=== PATIENT | female | born 1945 | race Caucasian/White ===

== ENCOUNTER 2024-02-05 08:27 | Day surgery (SDC) | payer SELFPAY ==
[2024-02-05] VITALS (7 sets, daily range): BP systolic 93–126; BP diastolic 63–70; PULSE 61–72; RESP 16; TEMP 36.3–36.8; O2SAT 97–100; BMI 18.7
--- NOTE | 2024-02-05 08:46 | HP.PCM_ITS ---
HPI - General HPI Narrative WILBER LONG, is a 78 F who presents for an EGD and colonoscopy. Patient was unaware that omeprazole was called in and has not been taking. Patient states she thinks her abdominal bloating is better. office visit 12/18/23 HPI HPI: 78-year-old female presents for screening colonoscopy, encouraged by her PCP as she has been having issues with occasional bloating about twice a week per patient patient states that she can get abdominal discomfort with this in the upper abdomen states it can be a 6/10 and states it can continue until she goes to bed states she may lay down and have some burping denies any actual reflux of food or acid in her mouth or esophagus. Patient denies reflux. Patient is never had an EGD or colonoscopy. Patient states she did have an issue 3 years ago for about 7 months where she had nausea and vomiting least once a week she states she did a liver cleanse which involved grape juice and Epsom salt and mineral oil and after that she no longer had the nausea and vomiting. Patient states she has bowel movements daily denies any family history of colon cancer. Patient denies any abdominal surgeries. [facility] Medical History (Updated 02/04/24 @ 10:56 by Cnydi Smith) Abdominal pain Anemia Ciliary dyskinesia Constipation Genetic defect Hemorrhoids History of edema History of episiotomy History of pain when walking Injury of head and neck Leg cramps Nausea and vomiting Non-smoker Numbness and tingling Post-menopausal Shortness of breath on exertion Thyroid disease Wears glasses Wears partial dentures Weight loss Home Medications cholecalciferol (vitamin D3) 50 mcg (2,000 unit) capsule 50 mcg PO DAILY 12/18/23 [History Last Taken Unknown] multivitamin 1 tab PO DAILY 12/18/23 [History Last Taken 02/04/24] Allergy/AdvReac Type Severity Reaction Status Date / Time Egg Derived AdvReac Mild Other Verified 02/05/24 08:50 neeta AdvReac Mild Other Verified 02/05/24 08:50 pineapple AdvReac Mild Other Verified 02/05/24 08:50 Family History (Updated 12/18/23 @ 13:27 by Aury Bolaños) Mother Breast cancer Brother Heart disease Myocardial infarction Social History (Updated 12/18/23 @ 13:27 by Aury Bolaños) Smoking Status: Never smoker alcohol intake: never Past Medical/Surgical History Planned Operation Planned Operative Procedure/s: EGD/CSCOPE Previous Hospitalizations/Surgeries HX Hospitalizations: No Any Problems With Anesthesia: Yes (N,V) You/Your Family Experience Fever (Hyperthermia) With Anes: No Cholinesterase deficiency: No Cardiovascular Hx Hypertension: No Respiratory Hx Sleep Apnea: No Hx Respiratory Tract Infection/Cold (presently): No Do You Snore Loudly (louder than talking or can be heard): No Do You Often Feel Tired/ Fatigued/ Sleepy Dring Daytime?: No Has Anyone Observed You Stop Breathing During Sleep?: No Result (for STOP score): Negative Smoking Status: Never smoker Neurological Does patient have nerve stimulator: No Reproduction : No Allergies Egg Derived Adverse Reaction (Mild, Verified 02/05/24 08:50) Other Pt states she doesn't feel well with egg whites neeta Adverse Reaction (Mild, Verified 02/05/24 08:50) Other Pt states she doesn't feel well pineapple Adverse Reaction (Mild, Verified 02/05/24 08:50) Other Pt states she doesn't feel well Discharge Is Pt Admitted From a Intermediate, or a Detention: No After D/C, Where Do you Plan to Go: Return Home Physical Exam Const alert, oriented x3 and no apparent distress HEENT normocephalic and head/scalp atraumatic Resp normal respiratory effort Cardio regular rate GI soft to palpation and non-tender; Negative for non-distended Palpation: Negative for guarding Extremity no clubbing, cyanosis or edema Skin no rashes or lesions noted Neuro CN's II-XII intact bilaterally Psych mental status grossly normal Assessment & Plan Assessment/Plan (1) Abdominal bloating: (2) Screening for colon cancer: Surgery Risks - Colonoscopy I discussed with the patient the risks of the procedure: Yes Risks Include but are not Limited To: Plan for an EGD and colonoscopy Risks include but are not limited to: Bleeding, perforation requiring further surgery, inability to complete colonoscopy requiring barium enema.
[2024-02-05] MEDS: Lactated Ringers 1,000 ML 15 ML IV (09:16)
--- NOTE | 2024-02-05 09:45 | EGD_PTH ---
PATIENT: WILBER LONG LOC: EN U#:[id number] AGE/SX: 78/F ROOM: RE02/05/[address]: Dr. Lilo Mitchell MD : 1945 BED: DIS: 02/05/2024 SPEC #: [id number] RECD: 02/05/24 11:24 STATUS: CATHERINE CHERYL #: [id number] NEVAEH: 02/05/24 09:[address]: Lilo Mitchell DEPT: SURGICAL PATHOLOGY RECD BY: Mercy Carter ENTERED: 02/05/24 12:46 SP TYPE: EGD BIOPSY OTHR DR: Jared Moore PA-C Tissues: A - Gastric mucous membrane B - Gastric mucous membrane C - Esophagus, NOS D - Esophagus, NOS E - Esophagus, NOS F - Descending colon Procedures: Special Stain Group II Special Stain Group I Surgery Specimen Level IV GMS Stain (control) Alcian Blue/PAS (control) HEADER OPERATION: Colonoscopy, EGD biopsy PRE-OP DIAGNOSIS: Abdominal boating, Screening for colon cancer TISSUE SUBMITTED: A- Antrum biopsy, B- Gastric body biopsy, C- Gastroesophageal junction biopsy, D- Mid esophagus erosion biopsy @ 15 and 20cm, E- Mid esophagus biopsy rule out anyi, F- Descending colon biopsy MICROSCOPIC DIAGNOSIS A. Antrum, biopsy: Moderate chronic active gastritis. See comment. B. Gastric body, biopsy: Moderate chronic active gastritis. See comment. C. Gastroesophageal junction, biopsy: Fragments of gastric mucosa with mild chronic inflammation. Intestinal metaplasia (goblet cell metaplasia) not identified. See comment. D. Mid esophagus erosion at 15.0 and 20.0cm, biopsy: A fragment of squamous epithelium with chronic inflammation. A minute fragment of gastric epithelium, negative for intestinal metaplasia (goblet cell metaplasia. See comment. E. Mid esophagus, biopsy: A fragment of squamous epithelium with chronic inflammation. See comment. F. Descending colon, biopsy: Hyperplastic polyp. 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 YUNIER/ 02/06/24 COMMENT A&B. The results of immunohistochemistry for Helicobacter pylori will be reported separately ([id number]). C&D. Alcian blue/PAS stain with matched control is used in the evaluation of the specimen. E. Special stain for fungi is negative for organisms; matched control is appropriate. MICROSCOPIC DESCRIPTION Slides are reviewed. GROSS DESCRIPTION A- Received in fixative is one container labeled with the patient's name and designated Antrum biopsy. The specimen consists of one irregular fragment of light martinez soft tissue that measures 0.4 x 0.3 x 0.1 cm. The specimen is totally submitted in one cassette. B. Received in fixative is one container labeled with the patient's name and designated Gastric body biopsy. The specimen consists of one irregular fragment of light martinez soft tissue that measures 0.3 x 0.3 x 0.1 cm. The specimen is totally submitted in one cassette. C. Received in fixative is one container labeled with the patient's name and designated GE junction biopsy. The specimen consists of one irregular fragment of light martinez soft tissue that measures 0.2 x 0.2 x 0.1 cm. The specimen is totally submitted in one cassette. D. Received in fixative is one container labeled with the patient's name and designated Mid esophagus erosion biopsy. The specimen consists of one irregular fragment of light martinez soft tissue that measures 0.2 x 0.2 x 0.1 cm. The specimen is totally submitted in one cassette. E. Received in fixative is one container labeled with the patient's name and designated Mid esophagus biopsy rule out anyi. The specimen consists of one irregular fragment of light martinez soft tissue that measures 0.3 x 0.2 x 0.1 cm. The specimen is totally submitted in one cassette. F. Received in fixative is one container labeled with the patient's name and designated Descending colon biopsy. The specimen consists of multiple irregular fragments of light martinez soft tissue that in aggregate measure 1.0 x 0.3 x 0.1 cm. The specimen is totally submitted in one cassette. YUNIER/ 02/05/24 TC:2 CPT:09802e4, 62197x0, 07510
--- NOTE | 2024-02-05 09:45 | IMM_PTH ---
PATIENT: WILBER LONG LOC: EN U#:[id number] AGE/SX: 78/F ROOM: RE02/05/[address]: Dr. Lilo Mitchell MD : 1945 BED: DIS: 02/05/2024 SPEC #: [id number] RECD: 02/05/24 13:19 STATUS: CATHERINE REMark #: [id number] NEVAEH: 02/05/24 09:[address]: Lilo Mitchell DEPT: IMMUNOHISTOCHEMISTRY RECD BY: Oren Jacobsen ENTERED: 02/05/24 13:20 SP TYPE: IMMUNO OTHR DR: Jared Moore PA-C Tissues: A - Stomach, NOS B - Stomach, NOS Procedures: H Pylori (initial) PHYSICIAN & INSTITUTION [place] [id number] SPECIMEN INFORMATION: Tissue Source: A- Antrum, B- Gastric body Clinical Info: Abdominal bloating, Screening for colon cancer Specimen Number: [id number] A&B CPT code: 84691 METHODOLOGY: Deparaffinized sections of prefer/formalin-fixed tissue or PAP/DQ stained slides are incubated with monoclonal/polyclonal antibodies/oligonucleotide probes. Localization is made via biotin free immunoperoxidase method. Appropriate controls are performed and reacted as expected. Results on target cell population are indicated in the following table: RESULTS: ANTIBODY / CLONE RESULT Block A H Pylori (polyclonal) negative Block B H Pylori (polyclonal) negative These tests were developed and their performance characteristics determined by [facility]. They may not have been cleared or approved by the U.S. Food and Drug Administration. The FDA has determined that such clearance or approval is not necessary. The above immunohistochemical/dualISH markers are ordered and reviewed by the Pathologist. INTERPRETATION: A. Antrum, biopsy: Negative for Helicobacter pylori organisms. B. Gastric body, biopsy: Negative for Helicobacter pylori organisms. YUNIER/ 02/06/24
--- NOTE | 2024-02-05 10:19 | OP.COLON_ITS ---
Patient Name: Lissette Gibbs Procedure Date: 02/05/2024 9:43 AM Date of : 1945 Age: 78 Procedure: Colonoscopy Indications: Screening for colorectal malignant neoplasm Providers: Lilo Mitchell MD Medicines: Monitored Anesthesia Care Patient Profile: This is a 78 year old female. Last Colonoscopy: none. The patient's first colonoscopy is today. Complications: No immediate complications. Procedure: Pre-Anesthesia Assessment: - Prior to the procedure, a History and Physical was performed, and patient medications and allergies were reviewed. The patient's tolerance of previous anesthesia was also reviewed. The risks and benefits of the procedure and the sedation options and risks were discussed with the patient. All questions were answered, and informed consent was obtained. Prior Anticoagulants: The patient has taken no anticoagulant or antiplatelet agents. ASA Grade Assessment: Per anesthesia. After reviewing the risks and benefits, the patient was deemed in satisfactory condition to undergo the procedure. After I obtained informed consent, the scope was passed under direct vision. Throughout the procedure, the patient's blood pressure, pulse, and oxygen saturations were monitored continuously. The pediatric colonoscope was introduced through the anus and advanced to the cecum, identified by the appendiceal orifice, ileocecal valve and palpation. The colonoscopy was performed without difficulty. The patient tolerated the procedure well. The quality of the bowel preparation was good. Scope In: 9:44:55 AM Scope Withdrawal Time 0 hours 13 minutes 12 seconds Scope Out: 10:07:49 AM Total Procedure Duration Time 0 hours 22 minutes 54 seconds Findings: Hemorrhoids were found on perianal exam. Non-bleeding internal hemorrhoids were found [Method Found]. The hemorrhoids were Grade I (internal hemorrhoids that do not prolapse). An area of melanosis was found in the entire colon. Two sessile polyps were found in the descending colon. The polyps were less than 5 mm in size. These polyps were removed with a cold biopsy forceps. Resection and retrieval were complete. The exam was otherwise without abnormality. Impression: - Hemorrhoids found on perianal exam. - Non-bleeding internal hemorrhoids. - Melanosis in the colon. - Two less than 5 mm polyps in the descending colon, removed with a cold biopsy forceps. Resected and retrieved. - The examination was otherwise normal. Recommendation: - Discharge patient to home. - Resume previous diet. - Continue present medications. - Await pathology results. - Repeat colonoscopy in 5 years for surveillance based on pathology results. Procedure Code(s): --- Professional --- 45806, PT, Colonoscopy, flexible; with biopsy, single or multiple Diagnosis Code(s): --- Professional --- Z12.11, Encounter for screening for malignant neoplasm of colon K64.0, First degree hemorrhoids K63.89, Other specified diseases of intestine D12.4, Benign neoplasm of descending colon CPT copyright 2021 [employer]. All rights reserved. The codes documented in this report are preliminary and upon sort manager review may be revised to meet current compliance requirements. MD Lilo Cox MD 02/05/2024 10:18:24 AM This report has been signed electronically. Number of Addenda: 0 Note Initiated On: 02/05/2024 9:43 AM
--- NOTE | 2024-02-05 10:25 | OP.EGD_ITS ---
Patient Name: Lissette Gibbs Procedure Date: 02/05/2024 9:23 AM Date of : 1945 Age: 78 Procedure: Upper GI endoscopy Indications: Abdominal bloating Providers: Lilo Mitchell MD Medicines: Monitored Anesthesia Care Patient Profile: This is a 78 year old female. Complications: No immediate complications. Procedure: Pre-Anesthesia Assessment: - Prior to the procedure, a History and Physical was performed, and patient medications and allergies were reviewed. The patient's tolerance of previous anesthesia was also reviewed. The risks and benefits of the procedure and the sedation options and risks were discussed with the patient. All questions were answered, and informed consent was obtained. Prior Anticoagulants: The patient has taken no anticoagulant or antiplatelet agents. ASA Grade Assessment: Per anesthesia. After reviewing the risks and benefits, the patient was deemed in satisfactory condition to undergo the procedure. After obtaining informed consent, the endoscope was passed under direct vision. Throughout the procedure, the patient's blood pressure, pulse, and oxygen saturations were monitored continuously. The pediatric colonoscope was introduced through the mouth, and advanced to the second part of duodenum. The upper GI endoscopy was accomplished without difficulty. The patient tolerated the procedure well. Scope In: 9:33:20 AM Scope Out: 9:43:35 AM Total Procedure Duration Time 0 hours 10 minutes 15 seconds Findings: 2 at 15cm & 20 cm 5 mm bleeding erosions were found in the proximal esophagus. Biopsies were taken with a cold forceps for histology. The examined duodenum was normal. , white plaques were found in the middle third of the esophagus. Biopsies were taken with a cold forceps for histology. Diffuse moderate inflammation characterized by erythema was found in the entire examined stomach. Biopsies were taken with a cold forceps for histology. Biopsies were taken with a cold forceps for Helicobacter pylori cultures. The Z-line was irregular and was found 40 cm from the incisors. Biopsies were taken with a cold forceps for histology. Impression: - 2 at 15cm & 20 cm bleeding erosions in the proximal esophagus. Biopsied. - Normal examined duodenum. - Esophageal plaques were found, suspicious for candidiasis. Biopsied. - Gastritis. Biopsied. - Z-line irregular, 40 cm from the incisors. Biopsied. Recommendation: - Await pathology results. - Discharge patient to home (ambulatory). - Resume previous diet. - Use Prilosec (omeprazole) 40 mg PO daily [duration]. - Use sucralfate tablets 1 gram PO QID for 1 month. - Continue present medications. Procedure Code(s): --- Professional --- 01490, Esophagogastroduodenoscopy, flexible, transoral; with biopsy, single or multiple Diagnosis Code(s): --- Professional --- K22.11, Ulcer of esophagus with bleeding K22.9, Disease of esophagus, unspecified K29.70, Gastritis, unspecified, without bleeding R14.0, Abdominal distension (gaseous) CPT copyright 2021 [employer]. All rights reserved. The codes documented in this report are preliminary and upon senior health educator review may be revised to meet current compliance requirements. MD Lilo Cox MD 02/05/2024 10:24:55 AM This report has been signed electronically. Number of Addenda: 0 Note Initiated On: 02/05/2024 9:23 AM
[2024-02-05] MEDS: Pantoprazole Sodium 40 MG in 0.9% Normal Saline (100mL MB+) 100 ML 330 MG IV (10:30)
== END 2024-02-05 11:37 | disposition home or self-care (01) ==
LOC: EN 08:35 → AC 08:36
PROVIDERS: PCP Physician Assistant; Referring Provider Physician Assistant; Visit Provider Surgery
PROC: 0DJD8ZZ Inspection of Lower Intestinal Tract, Via Natural or Artificial Opening Endoscopic (ICD-10-PCS; CPT 45378; principal; 2024-02-05 09:40)
DX: Z12.11 Encounter for screening for malignant neoplasm of colon (principal); K64.0 First degree hemorrhoids; K63.89 Other specified diseases of intestine; D12.4 Benign neoplasm of descending colon; K22.11 Ulcer of esophagus with bleeding; K29.50 Unspecified chronic gastritis without bleeding; R14.0 Abdominal distension (gaseous)
CPT/HCPCS: 45380; 43239; 88305; 88312; 88313; 88342; J7120; J2405